=== PATIENT | male | born 1970 | race Caucasian/White ===

== ENCOUNTER 2023-04-01 13:37 | Emergency (ER) | payer OTHER, SELFPAY ==
[2023-04-01 13:40] VITALS: BP 132/72; PULSE 72; RESP 16; TEMP 36.7; O2SAT 99
--- NOTE | 2023-04-01 14:45 | ED.GENADULT ---
HPI - General Adult General Chief complaint: Wound/Laceration Stated complaint: eyebrow lac Time Seen by Provider: 04/01/23 14:23 History of Present Illness HPI narrative: 52-year-old male presented ED for evaluation after a facial injury. Patient was working in the dark and turned his head and struck the corner of a wall causing a laceration to his right eyebrow. Patient denies any headache denies any loss of consciousness. Patient is not on any blood thinners. Patient denies any associated nausea vomiting or dizziness. Upon arrival to the ED bleeding is resolved. Patient denies any other pain or injury. Related Data Allergies Allergy/AdvReac Type Severity Reaction Status Date / Time tuberculin,PPD,multi-puncture Allergy Swelling Verified 04/01/23 13:49 Review of Systems Review of Systems: All systems reviewed & are unremarkable except as noted in HPI and below Exam Narrative: APPEARANCE: Well appearing, no pain, no distress, well-nourished. HEAD: normocephalic, laceration to left eyebrow EYES: PERRLA/EOMI, conjunctivae clear. NOSE: Normal no drainage EARS:TMS clear with good light reflex. THROAT: Pharynx clear, no exudate. NECK: Supple. No adenopathy, no masses. RESPIRATORY: Airway patent, respirations nonlabored. Clear to auscultation bilaterally, no rales, rhonchi, wheezing. CARDIOVASCULAR: Regular rate and rhythm without murmurs rubs or gallops. ABDOMINAL: Soft, nontender, nondistended, normal bowel sounds MUSCULOSKELETAL: Moves all extremities. Strength/ROM intact, No edema, No calf tenderness. NEURO: Alert. Cranial nerves II through XII intact. Intact SKIN: Warm, dry. Normal Color Course Course Emergency Course: 52 old male presented to ED for evaluation of laceration to his right eyebrow. Laceration was repaired as described. Patient's tetanus was up-to-date. Patient denied any loss conscious denies any associated lightheaded or dizziness. No concern for intracranial injury or facial fracture. Patient was updated on the plan for wound care. All questions and concerns were addressed. Patient was comfortable with the plan for discharge and close follow-up Vital Signs Vital signs: Vital Signs Temperature 98.1 F 04/01/23 13:40 Pulse Rate 72 04/01/23 13:40 Respiratory Rate 16 04/01/23 13:40 Blood Pressure 132/72 04/01/23 13:40 Pulse Oximetry 99 04/01/23 13:40 Oxygen Delivery Room Air 04/01/23 13:40 Temperature 98.1 F 04/01/23 13:40 Pulse Rate 72 04/01/23 13:40 Respiratory Rate 16 04/01/23 13:40 Blood Pressure 132/72 04/01/23 13:40 Pulse Oximetry 99 04/01/23 13:40 Oxygen Delivery Room Air 04/01/23 13:40 Procedures Laceration Laceration 1: Site: face Side (If applicable): right Size (cm): 3 Description: linear Depth: simple, single layer Local Anesthetic: lidocaine 1% Amount of anesthesia used (mL): 3 Pre-repair: wound explored, irrigated and irrigated extensively ====== Skin Level ====== Skin layer closed with: nylon Size (cm): 6-0 Number of sutures: 6 Technique: simple, interrupted ====== Subcutaneous Layer ====== ====== Muscle Layer ====== ====== Tendon Layer ====== Medical Decision Making Differential Diagnosis Differential Diagnosis: Facial contusion, facial laceration, facial fracture, intracranial injury Vital Signs Vital Signs: Vital Signs Temperature 98.1 F 04/01/23 13:40 Pulse Rate 72 04/01/23 13:40 Respiratory Rate 16 04/01/23 13:40 Blood Pressure 132/72 04/01/23 13:40 Pulse Oximetry 99 04/01/23 13:40 Oxygen Delivery Room Air 04/01/23 13:40 Temperature 98.1 F 04/01/23 13:40 Pulse Rate 72 04/01/23 13:40 Respiratory Rate 16 04/01/23 13:40 Blood Pressure 132/72 04/01/23 13:40 Pulse Oximetry 99 04/01/23 13:40 Oxygen Delivery Room Air 04/01/23 13:40 Discharge Plan Discharge Clini
[2023-04-01] MEDS: LIDOCAINE HCL 1% LOCAL INJ 10 ML VIAL INFILTRATE (15:38)
== END 2023-04-01 15:49 | disposition home or self-care (01) ==
PROVIDERS: Emergency Provider Emergency Medicine
DX: S01.111A Laceration without foreign body of right eyelid and periocular area, initial encounter (principal); W22.01XA Walked into wall, initial encounter
CPT/HCPCS: 12013; 99282